=== PATIENT | male | born 2000 | race African-American/Black ===

== ENCOUNTER 2021-01-23 17:13 | Emergency (ER) | payer BC ==
--- NOTE | 2021-01-23 17:51 | ERPHSYRPT ---
- History of Present Illness Source: patient Exam Limitations: no limitations Patient Subjective Stated Complaint: pt began having congestion last week and is now weak, fatigued, coughing, febrile, shortness of breath Triage Nursing Assessment: Pt brought to the ER by his , tachycardic, rates chest pain from coughing as 8/10, pulses normal, skin n/h/d, fatigued, cough with green sputum Physician History: 20 yo AAM w cough/coryza/ST/NUNO/Fever/Myalgias x 5 days. He denies N/V/D and has been fully vaccinated. Timing/Duration: other (5 days) Cough Quality/Degree: dry cough Possible Cause: no prior episodes Modifying Factors: Improves With: coughing Associated Symptoms: fever, chills, cough, earache, muscle aches, nasal congestion, nasal drainage, sore throat Allergies/Adverse Reactions: No Known Drug Allergies Allergy (Verified 01/23/21 17:35) Travel Risk - International Travel Have you traveled outside of the country in past 3 weeks: No - Coronavirus Screening Are you exhibiting any of the following symptoms?: Yes Symptoms: Fever, Cough: New Onset, Shortness of Breath, Headaches/Body Aches/Fatigue Close contact with a COVID-19 positive Pt in past 14-21 Days: No - Vaccine Status Have you recieved a Covid-19 vaccination: Yes Primary Care Sales Representative: Moderna - Vaccination Dates Date of 2cond Vaccination (if applicable): 09/2020 - Review of Systems Constitutional: No Symptoms, Fever, Chills, Fatigue Eyes: No Symptoms Ears, Nose, & Throat: No Symptoms, Ear Pain, Nose Congestion, Throat Pain Respiratory: Cough, Dyspnea Cardiac: No Symptoms Abdominal/Gastrointestinal: No Symptoms Genitourinary Symptoms: No Symptoms Musculoskeletal: No Symptoms, Myalgias Skin: No Symptoms Neurological: No Symptoms, Headache Psychological: No Symptoms Endocrine: No Symptoms Hematologic/Lymphatic: No Symptoms Immunological/Allergic: No Symptoms - Past Medical History Pertinent Past Medical History: Yes Cardiac History: Other Other Medical History: inflammation around his heart - Past Surgical History Past Surgical History: No - Social History Smoking Status: Former smoker Exposure to second hand smoke: Yes Drug Use: marijuana Patient Lives Alone: No Significant Family History: no pertinent family hx - Nursing Vital Signs Nursing Vital Signs: Initial Vital Signs Temperature 99.1 F 01/23/21 17:23 Pulse Rate 106 H 01/23/21 17:23 Respiratory Rate 19 01/23/21 17:23 Blood Pressure 139/84 01/23/21 17:23 O2 Sat by Pulse Oximetry 98 01/23/21 17:23 Pain Scale Pain Intensity 8 Tachy - Physical Exam General Appearance: no apparent distress Eye Exam: PERRL/EOMI, eyes nml inspection Ears, Nose, Throat Exam: normal ENT inspection, pharynx normal, other (TM's retracted B) Neck Exam: normal inspection, non-tender, supple, full range of motion, No meningismus, No mass, No Brudzinski, No Kernig's Respiratory Exam: airway intact, diminished breath sounds (Overall clear but decreased at bases), No chest tenderness, No respiratory distress Cardiovascular Exam: tachycardia (woM) Gastrointestinal/Abdomen Exam: soft, normal bowel sounds, No tenderness Back Exam: normal inspection, normal range of motion, No CVA tenderness, No vertebral tenderness Extremity Exam: normal inspection, normal range of motion Neurologic Exam: alert, oriented x 3, cooperative, record librarian II-XII nml as tested, normal mood/affect, nml cerebellar function, nml station & gait, sensation nml, No motor deficits, No sensory deficit Skin Exam: normal color, warm, dry Lymphatic Exam: No adenopathy SpO2 Interpretation: normal SpO2: 98 O2 Delivery: Room Air - Course Nursing assessment & vital signs reviewed: Yes - Radiology Exams Chest X-ray Interpretation: Interpreted by me (NAD) Ordered Tests: Active Orders 24 hr Category Date Time Status Isolation, Initiate & Maintain STAT Care 01/23/21 17:44 Completed CHEST 1 VIEW (PORTABLE) Stat Exams 01/23/21 17:45 Taken CBC Stat Lab 01/23/21 17:43 Completed CMP Stat Lab 01/23/21 17:43 Completed INFLUENZA A+B CRISTINA Stat Lab 01/23/21 17:55 Completed Lactic Acid Stat Lab 01/23/21 17:50 Completed Lab/Rad Data: Laboratory Result Diagrams 01/23/21 17:43 01/23/21 17:43 Laboratory Results 01/23/21 01/23/21 01/23/21 Range/Units 17:55 17:55 17:50 WBC (4.0-10.5) K/mm3 RBC (4.1-5.6) M/mm3 Hgb (12.5-18.0) gm/dl Hct (42-50) % MCV (78-100) fl MCH (26-32) pg MCHC (32-36) g/dl RDW (11.5-14.0) % Plt Count (150-450) K/mm3 MPV (7.5-11.0) fl Sodium (137-145) mmol/L Potassium (3.5-5.1) mmol/L Chloride (98-107) mmol/L Carbon Dioxide (22-30) mmol/L Anion Gap (5-15) MEQ/L BUN (9-20) mg/dL Creatinine (0.66-1.25) mg/dL Estimated GFR ML/MIN Glucose (74-106) mg/dL Lactic Acid 1.1 (0.4-2.0) Calcium (8.4-10.2) mg/dL Total Bilirubin (0.2-1.3) mg/dL AST (17-59) U/L ALT (0-50) U/L Alkaline Phosphatase (38-126) U/L Serum Total Protein (6.3-8.2) g/dL Albumin (3.5-5.0) g/dL Influenza Type A Ag NEGATIVE (NEGATIVE) Influenza Type B Ag NEGATIVE (NEGATIVE) Group A Strep Antibody NOT DETECTED (NEGATIVE) 01/23/21 01/23/21 Range/Units 17:43 17:43 WBC 8.6 (4.0-10.5) K/mm3 RBC 5.65 H (4.1-5.6) M/mm3 Hgb 16.4 (12.5-18.0) gm/dl Hct 47.3 (42-50) % MCV 83.7 (78-100) fl MCH 29.0 (26-32) pg MCHC 34.7 (32-36) g/dl RDW 12.1 (11.5-14.0) % Plt Count 307 (150-450) K/mm3 MPV 10.2 (7.5-11.0) fl Sodium 140 (137-145) mmol/L Potassium 3.8 (3.5-5.1) mmol/L Chloride 104 (98-107) mmol/L Carbon Dioxide 27 (22-30) mmol/L Anion Gap 12.5 (5-15) MEQ/L BUN 13 (9-20) mg/dL Creatinine 0.91 (0.66-1.25) mg/dL Estimated GFR > 60.0 ML/MIN Glucose 76 (74-106) mg/dL Lactic Acid (0.4-2.0) Calcium 9.6 (8.4-10.2) mg/dL Total Bilirubin 1.00 (0.2-1.3) mg/dL AST 31 (17-59) U/L ALT 25 (0-50) U/L Alkaline Phosphatase 68 (38-126) U/L Serum Total Protein 8.2 (6.3-8.2) g/dL Albumin 4.9 (3.5-5.0) g/dL Influenza Type A Ag (NEGATIVE) Influenza Type B Ag (NEGATIVE) Group A Strep Antibody (NEGATIVE) - Progress Progress Note: 01/23/21 19:29 Pt received Moderna vaccine, but most likely, he has a breakthrough case of CV19. Pt swabbed for CV19. Will start doxycycline twice a day which pt will stop if CV19+. Counseled pt/family regarding: lab results, diagnosis, need for follow-up, rad results - Departure Departure Disposition: Home Clinical Impression: Viral syndrome Condition: Stable Critical Care Time: No Referrals: DOCTOR,NO FAMILY [Primary Care Provider] - Instructions: Viral Syndrome (DC) Additional Instructions: Start Doxycycline twice a day for 1 week. If Covid19+, stop Doxycycline. Quarantine for 10 days or until Covid19 test negative Rest Fluids Return to ER for worsening cough, shortness of breath, or temperature greater than 100.5 Forms: Work/School Release Form Prescriptions: Doxycycline Monohydrate 100 mg PO BID #14 tablet
[2021-01-23 17:53] LABS: Hematocrit 47.3 % (42-50); Hemoglobin 16.4 gm/dl (12.5-18.0); Mean Cell Volume 83.7 fl (78-100); Mean Corpuscular Hgb Concent. 34.7 g/dl (32-36); Mean Platelet Volume 10.2 fl (7.5-11.0); Platelet Count 307 K/mm3 (150-450); Red Blood Count 5.65 M/mm3 (4.1-5.6); Red Cell Distribution Width 12.1 % (11.5-14.0); White Blood Count 8.6 K/mm3 (4.0-10.5)
[2021-01-23 17:58] LABS: ALBUMIN 4.9 g/dL (3.5-5.0); ALKALINE PHOSPHATASE 68 U/L (38-126); ANION GAP 12.5 MEQ/L (5-15); BLOOD UREA NITROGEN 13 mg/dL (9-20); CHLORIDE 104 mmol/L (98-107); Calcium 9.6 mg/dL (8.4-10.2); Carbon Dioxide 27 mmol/L (22-30); Creatinine 1 0.91 mg/dL (0.66-1.25); EST GLOMERULAR FILTRATION RATE > 60.0 ML/MIN; Glucose 76 mg/dL (74-106); Potassium 3.8 mmol/L (3.5-5.1); SGOT/AST 31 U/L (17-59); SGPT/ALT 25 U/L (0-50); SODIUM 140 mmol/L (137-145); Total Protein 8.2 g/dL (6.3-8.2)
[2021-01-23 18:32] LABS: INFLUENZA A NEGATIVE (NEGATIVE); INFLUENZA B NEGATIVE (NEGATIVE)
[2021-01-23 19:26] VITALS: BP 126/77; PULSE 100
[2021-01-23 19:31] VITALS: O2SAT 98
--- NOTE | 2021-01-24 08:56 | XRAY ---
Indication: Cough and congestion. Comparison: None Portable apical lordotic chest demonstrates normal heart, lungs, and bony thorax.
== END 2021-01-23 19:48 | disposition home or self-care (01) ==
LOC: ED 17:13
DX: B34.9 Viral infection, unspecified (principal); R05 Cough; R53.83 Other fatigue; R06.02 Shortness of breath; M79.18 Myalgia, other site; R50.9 Fever, unspecified
CPT/HCPCS: 36415; 71045; 80053; 83605; 85027; 87400; 87651; 99283; U0003

== ENCOUNTER 2022-07-09 19:34 | Emergency (ER) | payer BC ==
[2022-07-09 20:45] VITALS: O2SAT 99
--- NOTE | 2022-07-09 20:53 | ERPHSYRPT ---
- History of Present Illness Time Seen by Provider: 07/09/22 20:47 Source: patient Exam Limitations: no limitations Patient Subjective Stated Complaint: Pt reports "I am having stomach pain and havent been able to have a bowel movement. I took five suppositories, took haris lax and gas relief and only had a small bowel movement today." Triage Nursing Assessment: Pt alert and oriented x3. No apparent respiratory distress. Skin dry/warm. Ambulated to cot without difficulty. Bowel sounds active in all four quads. Abdomen soft, round, tender throughout. Physician History: pt has some left side abd pain for about 1 week and has tried several laxatives. abd is currently minimally tender on left without peritoneal signs or masses. no genital discharge or pain reported. No urinary symptoms. No N or V. No fever. No prior surgeries. We discussed risks/benefits for lab and CT workup and pt currently wishes to decline and try enema first and is aware that additional pathology could be evolving undetected including or a serious nature - he has normal mental status and the capacity to make this choice. Timing/Duration: day(s), intermittent, other (mild cramping) Severity: moderate Associated Symptoms: other (constipation - small amounts of stool after laxatives. ) Allergies/Adverse Reactions: No Known Drug Allergies Allergy (Verified 07/09/22 20:33) Home Medications: No Reportable Medications [No Reported Medications] 07/09/22 [History] Hx Tetanus, Diphtheria Vaccination/Date Given: No Hx Influenza Vaccination/Date Given: No Hx Pneumococcal Vaccination/Date Given: No Travel Risk - International Travel Have you traveled outside of the country in past 3 weeks: No - Coronavirus Screening Are you exhibiting any of the following symptoms?: No - Vaccine Status Have you recieved a Covid-19 vaccination: Yes Box Puller: Moderna - Vaccination Dates Date of 2cond Vaccination (if applicable): 09/2020 - Review of Systems Constitutional: No Fever, No Chills Eyes: No Symptoms Ears, Nose, & Throat: No Symptoms Respiratory: No Cough, No Dyspnea Cardiac: No Chest Pain, No Edema, No Syncope Abdominal/Gastrointestinal: Other (some mild cramping), No Abdominal Pain, No Nausea, No Vomiting, No Diarrhea Genitourinary Symptoms: No Dysuria Musculoskeletal: No Back Pain, No Neck Pain Skin: No Rash Neurological: No Dizziness, No Focal Weakness, No Sensory Changes Psychological: No Symptoms Endocrine: No Symptoms Hematologic/Lymphatic: No Symptoms Immunological/Allergic: No Symptoms All Other Systems: Reviewed and Negative - Past Medical History Pertinent Past Medical History: Yes Cardiac History: Other Psycho-Social History: Depression Other Medical History: inflammation around his heart - Past Surgical History Past Surgical History: Yes Other Surgical History: wisdom teeth removal - Social History Smoking Status: Current every day smoker Exposure to second hand smoke: Yes Drug Use: marijuana Patient Lives Alone: No Significant Family History: no pertinent family hx - Nursing Vital Signs Nursing Vital Signs: Initial Vital Signs Temperature 98 F 07/09/22 20:34 Pulse Rate 68 07/09/22 20:34 Respiratory Rate 16 07/09/22 20:34 Blood Pressure 130/80 07/09/22 20:34 O2 Sat by Pulse Oximetry 99 07/09/22 20:34 Pain Scale Pain Intensity 6 - Physical Exam General Appearance: no apparent distress, alert Eye Exam: PERRL/EOMI, eyes nml inspection Ears, Nose, Throat Exam: normal ENT inspection, TMs normal, pharynx normal, moist mucous membranes Neck Exam: normal inspection, non-tender, supple, full range of motion Respiratory Exam: normal breath sounds, lungs clear, No respiratory distress Cardiovascular Exam: regular rate/rhythm, normal heart sounds, normal peripheral pulses Gastrointestinal/Abdomen Exam: soft, normal bowel sounds, tenderness (slight on left ), No mass Rectal Exam: deferred Back Exam: normal inspection, normal range of motion, No CVA tenderness, No vertebral tenderness Extremity Exam: normal inspection, normal range of motion, pelvis stable Neurologic Exam: alert, oriented x 3, cooperative, normal mood/affect, nml cerebellar function, nml station & gait, sensation nml, No motor deficits Skin Exam: normal color, warm, dry, No rash Lymphatic Exam: No adenopathy SpO2 Interpretation: normal SpO2: 99 O2 Delivery: Room Air - Course Nursing assessment & vital signs reviewed: Yes Ordered Tests: Active Orders 24 hr Category Date Time Status Enema STAT Care 07/09/22 20:52 Active Medication Summary Discontinued Medications Generic Name Dose Route Start Last Admin Trade Name Freq PRN Reason Stop Dose Admin Ondansetron HCl 4 mg 07/09/22 21:13 Zofran 4 Mg/Udtablet Orally Disintegrating PO 07/09/22 21:14 STAT ONE Ondansetron HCl Confirm 07/09/22 21:19 Zofran 4 Mg/Udtablet Orally Disintegrating Administered 07/09/22 21:20 Dose 4 mg .ROUTE .STK-MED ONE Pantoprazole Sodium 40 mg 07/09/22 21:13 Protonix (Pantoprazole) 40 Mg Tablet PO 07/09/22 21:14 STAT ONE Pantoprazole Sodium Confirm 07/09/22 21:20 Protonix (Pantoprazole) 40 Mg Tablet Administered 07/09/22 21:21 Dose 40 mg .ROUTE .STK-MED ONE - Progress Progress: improved, re-examined Progress Note: 07/09/22 21:53 pt had good result with enema and has no further abd pain or tenderness on exam now with normal exam. We discussed the result and the need for some followup to determine if other pathology is present as a contributing factor and pt wishes to chose outpt f/u with PMD or clinic rather than further w/u testing in [facility] and is aware that additional pathology of a serious nature could still be evolving undetected adn has the capacity to make this choice. Counseled pt/family regarding: diagnosis, need for follow-up Medical Desision Making - Discussion of managment Reviewed:: Test results, Need for additional workup Agreed on:: Treatment plan, need for follow-up - Departure Departure Disposition: Home Clinical Impression: abdominal pain and constipation Condition: Good Critical Care Time: No Referrals: DOCTOR,NO FAMILY [NON-STAFF PHY W/O PRIVILEGES] - Follow up/PCP as directed Instructions: Constipation, Adult (DC), Abdominal Pain, Adult ED Additional Instructions: Although [facility] some type of [facility], there still could be additional conditions developing undetected and therefore it is best to followup with a Dr. to consider further testing if indicated and to optimize future control of the symptoms and determine if there is a root cause. Return meantime if further pain, vomiting or any symptoms of concern. You can purchase the Fleets enema without prescription at a pharmacy when you need it , but should use under direction of your Dr. since it is an extreme measure. Milk of Magnesia 1 tablespoon daily is an additional measure , but again it is best to discuss with your Dr. as chronic symptoms may indicate another problem.
[2022-07-09 21:09] VITALS: BP 108/75; PULSE 60
[2022-07-09] MEDS ORDERED: ZOFRAN ODT 4 MG PO ONE (21:13)
[2022-07-09] MEDS ORDERED: Protonix 40MG Tablet PO ONE (21:13)
[2022-07-09] MEDS ORDERED: ZOFRAN ODT 4 MG ONE (21:19)
[2022-07-09] MEDS ORDERED: Protonix 40MG Tablet ONE (21:20)
== END 2022-07-09 22:22 | disposition home or self-care (01) ==
LOC: ED 19:34
DX: K59.00 Constipation, unspecified (principal); R10.9 Unspecified abdominal pain; Z72.0 Tobacco use
CPT/HCPCS: 99282; Q0162; A9270-GY

== ENCOUNTER 2023-07-23 14:04 | Emergency (ER) | payer BC ==
[2023-07-23 14:26] VITALS: BP 142/95; TEMP 97.9
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
[2023-07-23] MEDS ORDERED: MOTRIN 600 MG PO ONE (16:01)
[2023-07-23 16:03] VITALS: PULSE 72; RESP 16
[2023-07-23 16:05] VITALS: O2SAT 96
== END 2023-07-23 16:03 | disposition home or self-care (01) ==
LOC: ED 14:04
DX: S50.11XA Contusion of right forearm, initial encounter (principal); S80.01XA Contusion of right knee, initial encounter; S16.1XXA Strain of muscle, fascia and tendon at neck level, initial encounter; S06.0X0A Concussion without loss of consciousness, initial encounter; Y04.0XXA Assault by unarmed brawl or fight, initial encounter; Z72.0 Tobacco use
CPT/HCPCS: 70450; 72125; 73090; 73562; 99283